=== PATIENT | female | born 1945 | race Caucasian/White ===

== ENCOUNTER → 2017-01-14 | Outpatient (CLI) | payer MEDICARE, OTHER | LOC: RAD 14:08 | DX: M25.562 Pain in left knee (principal); M54.5 Low back pain; M47.816 Spondylosis without myelopathy or radiculopathy, lumbar region | CPT/HCPCS: 72110; 73564 ==

== ENCOUNTER → 2017-02-24 | Outpatient (CLI) | payer MEDICARE, OTHER | LOC: EMI 09:32 | DX: R51 Headache (principal); R42 Dizziness and giddiness; H70.92 Unspecified mastoiditis, left ear; G31.9 Degenerative disease of nervous system, unspecified; R93.0 Abnormal findings on diagnostic imaging of skull and head, not elsewhere classified | CPT/HCPCS: 70553; A9577; J7050 ==

== ENCOUNTER 2020-10-29 12:21 | Emergency (ER) | payer MEDICARE, OTHER ==
[2020-10-29] MEDS ORDERED: PERCOCET 5/325 T1 EA PO (15:16)
[2020-10-29] MEDS ORDERED: CYCLOBENZAPRINE5 MG PO (15:29)
[2020-10-29] MEDS ORDERED: PREDNISONE 20 M20 MG PO (15:29)
== END 2020-10-29 16:00 | disposition home or self-care (01) ==
LOC: ER1 12:21
DX: M54.41 Lumbago with sciatica, right side (principal); G89.29 Other chronic pain; E11.9 Type 2 diabetes mellitus without complications; I10 Essential (primary) hypertension; Z87.19 Personal history of other diseases of the digestive system; Z87.39 Personal history of other diseases of the musculoskeletal system and connective tissue
CPT/HCPCS: 72100; 96372; 99283; J1885; J2270

== ENCOUNTER 2020-11-07 17:18 | Emergency (ER) | payer MEDICARE, OTHER ==
[~2020-11-07 17:18] MED LIST: CYCLOBENZAPRINE5 MG PO; PERCOCET 5/325 T1 EA PO; PREDNISONE 20 M20 MG PO
[2020-11-07 21:37] LABS: HEMOGLOBIN 13.6 gm/dl (12.3-15.3); RED BLOOD COUNT 4.94 M/UL (4.00-5.10); WHITE BLOOD COUNT 16.9 K/UL (4.5-11.0)
[2020-11-07 21:59] LABS: BUN/CREATININE RATIO 24 (0-10)
== END 2020-11-07 23:38 | disposition home or self-care (01) ==
LOC: ER1 17:18
PROVIDERS: Physician Assistant
DX: R94.31 Abnormal electrocardiogram [ECG] [EKG] (principal); R07.9 Chest pain, unspecified; R00.0 Tachycardia, unspecified; M54.9 Dorsalgia, unspecified; Z79.899 Other long term (current) drug therapy; Z87.891 Personal history of nicotine dependence
CPT/HCPCS: 36415; 71045; 80053; 82550; 82553; 83874; 84484; 85025; 93005; 96372; 99285; J1885

== ENCOUNTER 2022-01-07 14:07 | Emergency (ER) | payer OTHER ==
[~2022-01-07 14:07] MED LIST changes: +DIFLUCAN150 MG PO; +MUCINEX600 MG PO; +OMNICEF 300 MG300 MG PO; +PREDNISONE 10 M10 MG PO
[2022-01-07 15:31] LABS: HEMOGLOBIN 11.3 gm/dl (12.3-15.3); RED BLOOD COUNT 4.27 M/UL (4.00-5.10); WHITE BLOOD COUNT 13.1 K/UL (4.5-11.0)
[2022-01-07 15:47] LABS: BUN/CREATININE RATIO 9 (0-10)
[2022-01-07] MEDS ORDERED: AMOX TR-K CLV1 EAC4 PO (17:09)
== END 2022-01-07 17:27 | disposition home or self-care (01) ==
LOC: ER1 14:07
PROVIDERS: Physician Assistant
DX: K57.92 Diverticulitis of intestine, part unspecified, without perforation or abscess without bleeding (principal); B37.9 Candidiasis, unspecified; Z20.822 Contact with and (suspected) exposure to COVID-19; E11.9 Type 2 diabetes mellitus without complications; E78.5 Hyperlipidemia, unspecified; I10 Essential (primary) hypertension; Z88.2 Allergy status to sulfonamides; Z88.5 Allergy status to narcotic agent
CPT/HCPCS: 0240U; 80053; 83690; 85025; 96374; 96375; 99284; J2270; J2405; J7030; Q0177; Q9967

== ENCOUNTER → 2022-04-25 | Outpatient (CLI) | payer MEDICARE, OTHER ==
[~2022-04-25] MED LIST changes: +AMOX TR-K CLV1 EAC4 PO
== END ==
LOC: US 13:29
DX: R60.0 Localized edema (principal)
CPT/HCPCS: 93971